=== PATIENT | female | born 1995 ===

== ENCOUNTER → 2022-02-24 | Day surgery (SDC) | payer OTHER ==
[~2022-02-24] VITALS: Ht 157.5 cm; Wt 95.2 kg
[~2022-02-24] MED LIST: DUONEB 2.5-0.5M1 AMP INH; LEVOTHYROXINE50 MCG PO; METOPROLOL SUCC25 MG PO; VITAMIN D21250 MCG PO
[2022-02-24 11:18] LABS: HCG (URINE) SCREEN NEGATIVE (NEGATIVE)
[2022-02-24 11:52] LABS: BASOPHIL 0.8 % (0-2); EOSINOPHIL 2.2 % (0-5); HCT 44.9 % (37.0-47.0); LYMPHOCYTE 40.9 % (15-48); MCH 31.5 pg (25.0-31.0); MCHC 33.4 g/dL (32.0-36.0); MCV 94.3 fL (78.0-100.0); MONOCYTE 7.2 % (0-12); MPV 9.3 fL (6.0-9.5); NEUTROPHIL 48.4 % (41-80); NRBC 0; PLT 363 K/uL (150-400); RBC 4.76 M/uL (4.20-5.40); RDW 12.4 % (11.5-14.0); WBC 10.9 K/uL (4.0-10.5)
[2022-02-24 19:38] LABS: BUN/CREAT RATIO (CALC) 14.7 RATIO; CREATININE 0.68 mg/dL (0.51-0.95); POTASSIUM 3.9 mmol/L (3.5-5.1)
== END | disposition home or self-care (01) ==
LOC: FAS 10:13
PROVIDERS: Anesthesiology; Oral & Maxillofacial Surgery
DX: K01.1 Impacted teeth (principal); E66.9 Obesity, unspecified; J45.909 Unspecified asthma, uncomplicated; R00.0 Tachycardia, unspecified; E03.9 Hypothyroidism, unspecified; Z20.822 Contact with and (suspected) exposure to COVID-19
CPT/HCPCS: 36415; 80048; 84703; 85025; J1100; J2250; J2370; J2405; J2704; J3010; J7120